=== PATIENT | male | born 1965 | race Caucasian/White ===

== ENCOUNTER 2019-07-17 13:42 | Emergency (ER) | payer OTHER ==
[2019-07-17 14:29] VITALS: BP 121/66
--- NOTE | 2019-07-17 14:56 | UC ---
Bite Injury/Animal HPI - HPI Summary HPI Summary: 54-year-old male comes in with a chief complaint of a tick in his left upper arm. Patient noticed it this morning. He believes he got it in there last night. No rash or fevers no chills feels well otherwise. He used tweezers and got everything out except for the head. - History of Current Complaint Chief Complaint: [place] Stated Complaint: TICK BITE Time Seen by Provider: 07/17/19 14:46 Pain Intensity: 0 - Allergies/Home Medications Allergies/Adverse Reactions: Allergies Allergy/AdvReac Type Severity Reaction Status Date / Time No Known Allergies Allergy Verified 07/17/19 14:29 Home Medications: Home Medications DOXYcycline CAP(*) [DOXYcycline 100MG CAP(*)] 200 mg PO ONCE #2 cap 07/17/19 [Rx ] PMH/Surg Hx/FS Hx/Imm Hx Previously Healthy: Yes - Surgical History Surgical History: Yes Surgery Procedure, Year, and Place: tonsillectomy - Family History Known Family History: Positive: Non-Contributory - Social History Alcohol Use: Daily Alcohol Amount: 2-3 Substance Use Type: None Smoking Status (MU): Never Smoked Tobacco Review of Systems All Other Systems Reviewed And Are Negative: Yes Constitutional: Positive: Negative Skin: Positive: Other - SEE HPI Eyes: Positive: Negative ENT: Positive: Negative Respiratory: Positive: Negative Cardiovascular: Positive: Negative Gastrointestinal: Positive: Negative Motor: Positive: Negative Neurovascular: Positive: Negative Musculoskeletal: Positive: Negative Neurological/Mental Status: Positive: Negative Psychological: Positive: Negative Is Patient Immunocompromised?: No Physical Exam Triage Information Reviewed: Yes Appearance: Well-Appearing, No Pain Distress, Well-Nourished Vital Signs: Initial Vital Signs Temp 98 F 07/17/19 14:26 Pulse 56 07/17/19 14:26 Resp 16 07/17/19 14:26 BP 121/66 07/17/19 14:26 Pulse Ox 100 07/17/19 14:26 Vital Signs Reviewed: Yes Eye Exam: Normal Eyes: Positive: Conjunctiva Clear Neck: Positive: Supple Respiratory: Positive: No respiratory distress Musculoskeletal: Positive: Strength Intact, ROM Intact Neurological: Positive: Alert Psychological: Positive: Age Appropriate Behavior Skin: Positive: Other - There is a pinpoint black foreign body left upper arm consistent with a tick head. No bull's-eye rash no rash no drainage. Bite Injury Course/Dx - Course Course Of Treatment: Treating with a single dose of doxycycline 200 mg once for the tick bite. Patient knows that if he gets bull's-eye rash or feels ill he see reevaluated. - Differential Dx/Diagnosis Provider Diagnosis: Tick bite of left upper arm Discharge ED - Sign-Out/Discharge Documenting (check all that apply): Patient Departure All imaging exams completed and their final reports reviewed: No Studies - Discharge Plan Condition: Stable Disposition: HOME Prescriptions: DOXYcycline CAP(*) [DOXYcycline 100MG CAP(*)] 200 mg PO ONCE #2 cap Patient Education Materials: Tick Bite (ED) Referrals: Sima Jimenez DO [Primary Care Provider] - Additional Instructions: GET REEVALUATED IF NOT IMPROVED OR WORSE; BULLS EYE RASH, RASH, YOU FEEL ILL, FEVER OR ANY QUESTIONS OR CONCERNS. - Billing Disposition and Condition Condition: STABLE Disposition: Home
== END 2019-07-17 15:06 | disposition home or self-care (01) ==
LOC: UCEAST 13:42
DX: S40.862A Insect bite (nonvenomous) of left upper arm, initial encounter (principal); W57.XXXA Bitten or stung by nonvenomous insect and other nonvenomous arthropods, initial encounter; Y92.9 Unspecified place or not applicable
CPT/HCPCS: 99211; G0463